=== PATIENT | male | born 1990 | race Caucasian/White ===

== ENCOUNTER 2016-08-20 10:52 | Emergency (ER) | payer SELFPAY ==
[2016-08-20 11:33] VITALS: BP 132/94
[2016-08-20] MEDS ORDERED: Ibuprofen TAB* 600 MG PO ONE (11:38)
--- NOTE | 2016-08-20 11:38 | UC ---
Ear Complaint HPI - HPI Summary HPI Summary: 26 yo male with URI symptoms x days no with 1 day hx of severe right ear ache - History of Current Complaint Chief Complaint: UCEar Stated Complaint: EAR PAIN Time Seen by Provider: 08/20/16 11:33 Hx Obtained From: Patient Onset/Duration: Gradual Onset, Lasting Days Severity Initially: Severe Severity Currently: Severe Pain Intensity: 10 Pain Scale Used: 0-10 Numeric Associated Signs/Symptoms: Positive: Hearing Loss, URI Symptoms - Allergies/Home Medications Allergies/Adverse Reactions: Allergies Allergy/AdvReac Type Severity Reaction Status Date / Time No Known Allergies Allergy Verified 04/15/13 19:39 PMH/Surg Hx/FS Hx/Imm Hx Previously Healthy: Yes Respiratory History Of: Reports: Asthma - as a child - Surgical History Surgical History: Yes Surgery Procedure, Year, and Place: Left fifth repair - Family History Known Family History: Positive: Hypertension, Respiratory Disease - Social History Alcohol Use: Occasionally Substance Use Type: Marijuana Substance Use Comment - Amount & Last Used: occ Smoking Status (MU): Never Smoked Tobacco Type: Smokeless Tobacco Amount Used/How Often: 1/2 can per day Have You Smoked in the Last Year: No When Did the Patient Quit Smoking/Using Tobacco: 10 years Household Exposure Type: Cigarettes Review of Systems Constitutional: Negative Skin: Negative Eyes: Negative ENT: Ear Ache Respiratory: Cough Cardiovascular: Negative Gastrointestinal: Negative Genitourinary: Negative Motor: Negative Neurovascular: Negative Musculoskeletal: Negative Neurological: Negative Psychological: Negative All Other Systems Reviewed And Are Negative: Yes Physical Exam Triage Information Reviewed: Yes Appearance: Well-Appearing, No Pain Distress, Well-Nourished Vital Signs: Initial Vital Signs Temp 97.9 F 08/20/16 11:30 Pulse 63 08/20/16 11:30 Resp 18 08/20/16 11:30 BP 132/94 08/20/16 11:30 Pulse Ox 99 08/20/16 11:30 Eyes: Positive: Conjunctiva Clear ENT: Positive: TMs normal - left normal, TM bulging - right, TM red - right. Negative: Hearing grossly normal, Pharynx normal, Nasal congestion, Nasal drainage, Tonsillar swelling, Tonsillar exudate, Trismus, Muffled/hoarse voice Neck: Positive: Supple, Nontender, No Lymphadenopathy Respiratory: Positive: Lungs clear, Normal breath sounds, No respiratory distress Cardiovascular: Positive: RRR, No Murmur Musculoskeletal: Positive: ROM Intact, No Edema Neurological: Positive: Alert Psychological Exam: Normal Skin Exam: Normal Ear Complaint Course/Dx - Differential Dx/Diagnosis Provider Diagnoses: right otitis media. viral URI Discharge - Discharge Plan Condition: Stable Disposition: HOME Prescriptions: Amoxicillin (*) 875 mg PO BID #20 tab Ibuprofen TAB* [Motrin TAB*] 600 mg PO QID PRN #40 tab PRN Reason: Pain Patient Education Materials: Otitis Media (ED) Referrals: No Primary Care Phys,NOPCP [Primary Care Provider] - Additional Instructions: see your provider in 2 weeks if hearing not back to normal recheck in 3-4 days if pain not better
== END 2016-08-20 11:52 | disposition home or self-care (01) ==
LOC: UCEAST 10:52
DX: H66.91 Otitis media, unspecified, right ear (principal); J06.9 Acute upper respiratory infection, unspecified; F12.90 Cannabis use, unspecified, uncomplicated; F17.220 Nicotine dependence, chewing tobacco, uncomplicated
CPT/HCPCS: 99212; A9270-GY; G0463